=== PATIENT | male | born 2000 | race Caucasian/White ===

== ENCOUNTER 2021-08-05 13:54 | Day surgery (SDC) | payer MEDICAID, SELFPAY ==
[2021-08-05] VITALS (10 sets, daily range): BP systolic 85–126; BP diastolic 40–93; PULSE 48–67; RESP 16–100; TEMP 36.1–37.2; O2SAT 95–100; BMI 17.9
--- NOTE | 2021-08-05 | IMM_PTH ---
PATIENT: TARA GEORGE LOC: EN U#:[id number] AGE/SX: 21/M ROOM: RE08/05/[address]: Dr. Sina Turner DO : 2000 BED: DIS: 08/05/2021 SPEC #: [id number] RECD: 08/08/21 11:24 STATUS: OWEN REQ #: [id number] ANTONINA: 08/05/21 00:[address]: Sina Turner DEPT: IMMUNOHISTOCHEMISTRY RECD BY: Lay Eugene ENTERED: 08/08/21 11:25 SP TYPE: IMMUNO OTHR DR: Dr. Jaron Martin MD Tissues: Gastric mucous membrane Procedures: H Pylori (initial) PHYSICIAN & INSTITUTION [place] [address] SPECIMEN INFORMATION: Tissue Source: Gastric antrum Clinical Info: Inflammatory bowel disease, abdominal pain Specimen Number: [id number] CPT code: 97760 METHODOLOGY: Deparaffinized sections of prefer/formalin-fixed tissue or PAP/DQ stained slides are incubated with monoclonal/polyclonal antibodies/oligonucleotide probes. Localization is made via biotin free immunoperoxidase method. Appropriate controls are performed and reacted as expected. Results on target cell population are indicated in the following table: RESULTS: ANTIBODY / CLONE RESULT H Pylori (polyclonal) negative These tests were developed and their performance characteristics determined by [facility]. They may not have been cleared or approved by the U.S. Food and Drug Administration. The FDA has determined that such clearance or approval is not necessary. The above immunohistochemical/dualISH markers are ordered and reviewed by the Pathologist. INTERPRETATION: Gastric body, biopsy: Negative for Helicobacter pylori organisms. SJ:anna 08/08/21
[2021-08-05] MEDS: Lactated Ringers 1,000 ML 15 ML IV (14:24)
--- NOTE | 2021-08-05 14:27 | SUR.PREOP ---
Pt able to produce negative PCR COVID result completed on 07/30/21 at [facility] observed on pt's phone by this RN
--- NOTE | 2021-08-05 14:45 | EGD_PTH ---
PATIENT: TARA GEORGE LOC: EN U#:[id number] AGE/SX: 21/M ROOM: RE08/05/[address]: Dr. Sina Turner DO : 2000 BED: DIS: 08/05/2021 SPEC #: [id number] RECD: 08/05/21 15:56 STATUS: OWEN REAntoinette #: [id number] ANTONINA: 08/05/21 14:[address]: Sina Turner DEPT: SURGICAL PATHOLOGY RECD BY: Anny Henriquez ENTERED: 08/06/21 08:39 SP TYPE: EGD BIOPSY OT DR: Dr. Jaron Martin MD Tissues: A - Duodenum, NOS B - Duodenum, NOS C - Gastric mucous membrane D - Esophagus, NOS E - Ileum, NOS F - COLON BIOPSY Procedures: Surgery Specimen Level IV HEADER OPERATION: EGD colonoscopy PRE-OP DIAGNOSIS: Inflammatory bowel disease, abdominal pain TISSUE SUBMITTED: A. Duodenum biopsy, B. Duodenal ulcer biopsy, C. Gastric biopsy, D. Distal esophagus, E. Terminal ilium biopsy, F. Random colon biopsy MICROSCOPIC DIAGNOSIS A. Duodenum biopsy: Fragments of duodenal mucosa, no pathologic diagnosis. B. Duodenal ulcer biopsy: Fragments of duodenal mucosa with extensive ulceration and associated acute inflammation. C. Gastric biopsy: Mild gastritis. See microscopic description and comment. D. Distal esophagus: Fragments of gastric mucosa with mild chronic inflammation. Intestinal metaplasia (goblet cell metaplasia) not identified. See comment. E. Terminal ilium biopsy: Fragments of small intestinal mucosa, no pathologic diagnosis. F. Random colon biopsy: Fragments of colonic mucosa, no pathologic diagnosis. SJ 08/08/21 COMMENT C. The results of immunohistochemistry for Helicobacter pylori will be reported separately ([id number]). D. Alcian blue/PAS stain with matched control is used in the evaluation of the specimen. MICROSCOPIC DESCRIPTION Slides are reviewed. C. The specimen shows fragments of gastric mucosa with chronic inflammatory cells infiltrates in the lamina propria consisting of lymphocytes and plasma cells, consistent with mild chronic gastritis. GROSS DESCRIPTION A. Received is one container labeled with the patient name and designated duodenum. The specimen consists of multiple fragments that in aggregate measure 1.2 x 0.3 x 0.1 cm. The specimen is totally submitted in one cassette. B. Received is one container labeled with the patient name and designated duodenum ulcer. The specimen consists of multiple fragments that in aggregate measure 1.0 x 0.3 x 0.1 cm. The specimen is totally submitted in one cassette. C, Received is one container labeled with the patient name and designated gastric body. The specimen consists of one irregular fragment of light maddox soft tissue that measures 0.6 x 0.3 x 0.7 cm. The specimen is totally submitted in one cassette. D. Received is one container labeled with the patient name and designated distal esophagus. The specimen consists of multiple fragments that in aggregate measure 0.6 x 0.5 x 0.1 cm. The specimen is totally submitted in one cassette. E. Received is one container labeled with the patient name and designated terminal ilium. The specimen consists of two irregular fragment of light maddox soft tissue that in aggregate measure 0.5 x 0.5 x 0.1 cm. The specimen is totally submitted in one cassette. F. Received is one container labeled with the patient name and designated random colon. The specimen consists of The specimen consists of multiple fragments that in aggregate measure 2.0 x 1.0 x 0.1 cm. The specimen is. The specimen is totally submitted in one cassette. / SJ:cc 08/06/21 TC:2 CPT: 49833 x6, 73759
--- NOTE | 2021-08-05 15:03 | PCM.HP.BLA ---
History and Physical Date of Admission: 08/05/21 HPI Details: TARA GEORGE, is a 21 M who presents to the office today for Pain R side, left side and lower abdominal pain. Difficulty with constipation which alternates with diarrhea. Mucous-like stool. Onset about a year ago with minor symptoms and infrequently. It has progressed since onset in frequency and intensity. Has tried several OTC laxatives without effect. Presented to [place] [facility] due to abdominal pain. CT scans and ultrasounds performed and was told they think it's Crohn's. He does have family history of inflammatory bowel disease and a distant cousin. His weight goes up and down. He denies any arthritis but he does have on occasion blurred vision. He denies any chest pain or shortness of breath. He gets crampy abdominal pain that occurs almost on a daily basis. He gets diarrhea almost on a daily basis. He denies any rashes, ulcers or lesions that he can see. ROS Const Constitutional: Positive for weight change Eyes Eyes: Positive for blurry vision Cardio Cardiology: Positive for chest pain at rest Gastro GI: Positive for abdominal pain, bloating, change in bowel habits, constipation, diarrhea and nausea/dyspepsia Musc Musculoskeletal: Positive for joint pain Psych Psychiatric: Positive for anxiety, Positive for depression, Positive for Compulsive Behavior and Positive for hyperactivity Endo Endocrine: Positive for heat intolerance, increased hunger and weight change Assessment and Plan Assessment and Plan (1) Inflammatory bowel disease: Status: Acute Plan - Dr. Andino Friend, DO: The top differential diagnosis for a young man with crampy abdominal pain followed by diarrhea that is causing a significant weight reduction would be inflammatory bowel disease. Also diagnosis could be infectious colitis or enterocolitis secondary to eosinophilic gastroenteritis. We will need to check for these things and also celiac disease and microscopic colitis associated with celiac disease. We will also check for lymphocytic colitis and collagenous colitis while he undergoes colonoscopy. (2) Abdominal pain: Status: Acute Plan - Dr. Andino Friend, DO: Also under the diagnosis is IBS with diarrhea. I will give him dicyclomine for crampy abdominal pain. Bowel also give him a short course of prednisone therapy. Plan Details Other Medications: New: prednisone 20 mg PO DAILY 14 tabs 0RF polyethylene glycol 3350 (Miralax) 17 grams PO Q10-15M 510 grams 0RF dicyclomine 20 mg PO Q6H PRN 30 tabs 0RF abdominal pain I have re-examined the patient. There are no clinical changes since date of exam.
--- NOTE | 2022-05-15 06:38 | OP.COLON_ITS ---
Patient Name: Anil Rojas Procedure Date: 08/05/2021 3:19 PM Date of : 2000 Age: 21 Procedure: Colonoscopy Indications: Generalized abdominal pain, Chronic diarrhea Providers: Sina Turner DO Patient Profile: This is a 21 year old male. Refer to note in patient chart for documentation of history and physical. Patient has symptoms of acute abdominal cramping, acute abdominal distention and acute epigastric abdominal pain. Last Colonoscopy: none. The patient's first colonoscopy is today. Complications: No immediate complications. Procedure: Pre-Anesthesia Assessment: - Prior to the procedure, a History and Physical was performed, and patient medications and allergies were reviewed. The risks and benefits of the procedure and the sedation options and risks were discussed with the patient. All questions were answered and informed consent was obtained. Patient identification and proposed procedure were verified by the physician in the pre-procedure area. Mental Status Examination: alert and oriented. Airway Examination: normal oropharyngeal airway and neck mobility. Respiratory Examination: clear to auscultation. CV Examination: normal. Prophylactic Antibiotics: The patient does not require prophylactic antibiotics. Prior Anticoagulants: The patient has taken no previous anticoagulant or antiplatelet agents. ASA Grade Assessment: II - A patient with mild systemic disease. After reviewing the risks and benefits, the patient was deemed in satisfactory condition to undergo the procedure. The anesthesia plan was to use moderate sedation / analgesia (conscious sedation). Immediately prior to administration of medications, the patient was re-assessed for adequacy to receive sedatives. The heart rate, respiratory rate, oxygen saturations, blood pressure, adequacy of pulmonary ventilation, and response to care were monitored throughout the procedure. The physical status of the patient was re-assessed after the procedure. - Pre-procedure physical examination revealed no contraindications to sedation. After I obtained informed consent, the scope was passed under direct vision. Throughout the procedure, the patient's blood pressure, pulse, and oxygen saturations were monitored continuously. The Colonoscope was introduced through the and advanced to. The Colonoscope was introduced through the anus and advanced to the terminal ileum. The colonoscopy was performed without difficulty. Moderate Sedation: Moderate (conscious) sedation was administered by the endoscopy nurse and supervised by the endoscopist. The patient's oxygen saturation, heart rate, blood pressure and response to care were monitored. Total physician intraservice time was 15 minutes. Moderate (conscious) sedation was administered by the endoscopy nurse and supervised by the endoscopist. The patient's oxygen saturation, heart rate, blood pressure and response to care were monitored. Total physician intraservice time was 15 minutes. Scope In: 3:25:53 PM Scope Withdrawal Time 0 hours 12 minutes 35 seconds Scope Out: 3:43:58 PM Total Procedure Duration Time 0 hours 18 minutes 5 seconds Findings: The perianal and digital rectal examinations were normal. An area of mildly congested mucosa was found in the sigmoid colon, at the splenic flexure and in the ascending colon. Biopsies were taken with a cold forceps for histology. Verification of patient identification for the specimen was done. Estimated blood loss was minimal. A scattered area of the distal ileum was congested. Biopsies were taken with a cold forceps for histology. Impression: - Congested mucosa in the sigmoid colon, at the splenic flexure and in the ascending colon. Biopsied. - Congested mucosa in the distal ileum. Biopsied. Recommendation: - Written discharge instructions were provided to the patient. - The signs and symptoms of potential delayed complications were discussed with the patient. - Written discharge instructions were provided to the patient. - The signs and symptoms of potential delayed complications were discussed with the patient. - Patient has a contact number available for emergencies. - Return to normal activities tomorrow. - Resume previous diet. - Continue present medications. - Await pathology results. - Return to my office in 2 weeks. - Repeat colonoscopy at appointment to be scheduled for surveillance based on pathology results. Procedure Code(s): --- Professional --- 51468, Colonoscopy, flexible; with biopsy, single or multiple G0500, Moderate sedation services provided by the same physician or other qualified health progressive care manager performing a gastrointestinal endoscopic service that sedation supports, requiring the presence of an independent trained observer to assist in the monitoring of the patient's level of consciousness and physiological status; initial 15 minutes of intra-service time; patient age 5 years or older (additional time may be reported with 65701, as appropriate) G0500, Moderate sedation services provided by the same physician or other qualified health progressive care manager performing a gastrointestinal endoscopic service that sedation supports, requiring the presence of an independent trained observer to assist in the monitoring of the patient's level of consciousness and physiological status; initial 15 minutes of intra-service time; patient age 5 years or older (additional time may be reported with 03870, as appropriate) CPT copyright 2017 [employer]. All rights reserved. The codes documented in this report are preliminary and upon applications manager review may be revised to meet current compliance requirements. Sina Turner DO 08/05/2021 3:51:03 PM This report has been signed electronically. Number of Addenda: 1 Note Initiated On: 08/05/2021 3:19 PM Addendum Number: 1 Addendum Date: 05/15/2022 6:34:28 AM MAC was used instead of moderate sedation for this patient. Sina Turner DO 05/15/2022 6:34:33 AM This report has been signed electronically.
--- NOTE | 2022-05-15 06:38 | OP.EGD_ITS ---
Patient Name: Anil Rojas Procedure Date: 08/05/2021 2:59 PM Date of : 2000 Age: 21 Procedure: Upper GI endoscopy Indications: Epigastric abdominal pain Providers: Sina Turner DO Medicines: See the Anesthesia note for documentation of the administered medications Patient Profile: This is a 21 year old male. Refer to note in patient chart for documentation of history and physical. Patient has symptoms of acute abdominal cramping, acute abdominal distention and acute epigastric abdominal pain. Complications: No immediate complications. Procedure: Pre-Anesthesia Assessment: - Prior to the procedure, a History and Physical was performed, and patient medications and allergies were reviewed. The risks and benefits of the procedure and the sedation options and risks were discussed with the patient. All questions were answered and informed consent was obtained. Patient identification and proposed procedure were verified by the physician in the pre-procedure area. Mental Status Examination: alert and oriented. Airway Examination: normal oropharyngeal airway and neck mobility. Respiratory Examination: clear to auscultation. CV Examination: normal. Prophylactic Antibiotics: The patient does not require prophylactic antibiotics. Prior Anticoagulants: The patient has taken no previous anticoagulant or antiplatelet agents. ASA Grade Assessment: II - A patient with mild systemic disease. After reviewing the risks and benefits, the patient was deemed in satisfactory condition to undergo the procedure. The anesthesia plan was to use moderate sedation / analgesia (conscious sedation). Immediately prior to administration of medications, the patient was re-assessed for adequacy to receive sedatives. The heart rate, respiratory rate, oxygen saturations, blood pressure, adequacy of pulmonary ventilation, and response to care were monitored throughout the procedure. The physical status of the patient was re-assessed after the procedure. - Pre-procedure physical examination revealed no contraindications to sedation. After obtaining informed consent, the endoscope was passed under direct vision. Throughout the procedure, the patient's blood pressure, pulse, and oxygen saturations were monitored continuously. The gastroscope was introduced through the and advanced to the. The gastroscope was introduced through the mouth, and advanced to the second part of duodenum. The upper GI endoscopy was accomplished without difficulty. The patient tolerated the procedure well. Moderate Sedation: Moderate (conscious) sedation was personally administered by an anesthesia professional. The following parameters were monitored: oxygen saturation, heart rate, blood pressure, and response to care. Total physician intraservice time was 15 minutes. Scope In: 3:11:10 PM Scope Out: 3:18:20 PM Total Procedure Duration Time 0 hours 7 minutes 10 seconds Findings: LA Grade B (one or more mucosal breaks greater than 5 mm, not extending between the tops of two mucosal folds) esophagitis with no bleeding was found 34 to 35 cm from the incisors. Biopsies were taken with a cold forceps for histology. Verification of patient identification for the specimen was done. Estimated blood loss was minimal. Localized mild inflammation characterized by congestion (edema) was found in the gastric body. Biopsies were taken with a cold forceps for histology. Verification of patient identification for the specimen was done. Biopsies were taken with a cold forceps for histology. Verification of patient identification for the specimen was done. Estimated blood loss was minimal. Three non-bleeding cratered duodenal ulcers with no stigmata of bleeding were found in the first portion of the duodenum. The largest lesion was 6 mm in largest dimension. Biopsies were taken with a cold forceps for histology. Verification of patient identification for the specimen was done. Estimated blood loss was minimal. Scattered mild inflammation characterized by erosions and erythema was found in the second portion of the duodenum. Biopsies were taken with a cold forceps for histology. Verification of patient identification for the specimen was done. Estimated blood loss was minimal. Impression: - LA Grade B reflux esophagitis. Rule out Garcia's esophagus. Biopsied. - Gastritis. Biopsied. - Multiple non-bleeding duodenal ulcers with no stigmata of bleeding. Biopsied. - Duodenitis. Biopsied. Recommendation: - Discharge patient to home. - Resume previous diet. - Use Protonix (pantoprazole) 40 mg PO BID for 2 months. - Continue present medications. Procedure Code(s): --- Professional --- 36205, Esophagogastroduodenoscopy, flexible, transoral; with biopsy, single or multiple CPT copyright 2017 [employer]. All rights reserved. The codes documented in this report are preliminary and upon visual display manager review may be revised to meet current compliance requirements. Sina Turner DO 08/05/2021 3:23:55 PM This report has been signed electronically. Number of Addenda: 1 Note Initiated On: 08/05/2021 2:59 PM Addendum Number: 1 Addendum Date: 05/15/2022 6:34:10 AM MAC was used instead of moderate sedation for this patient. Sina Turner DO 05/15/2022 6:34:17 AM This report has been signed electronically.
== END 2021-08-05 16:51 | disposition home or self-care (01) ==
LOC: EN 13:56 → AC 13:57
PROVIDERS: PCP Internal Medicine Infectious Disease; Referring Provider Internal Medicine Infectious Disease; Visit Provider Internal Medicine Gastroenterology
PROC: 0DJD8ZZ Inspection of Lower Intestinal Tract, Via Natural or Artificial Opening Endoscopic (ICD-10-PCS; CPT 45378; principal; 2021-08-05 14:40)
DX: K26.9 Duodenal ulcer, unspecified as acute or chronic, without hemorrhage or perforation (principal); K29.80 Duodenitis without bleeding; K29.70 Gastritis, unspecified, without bleeding; K20.90 Esophagitis, unspecified without bleeding; R19.7 Diarrhea, unspecified; J45.909 Unspecified asthma, uncomplicated; F32.A Depression, unspecified; F41.9 Anxiety disorder, unspecified; Z79.899 Other long term (current) drug therapy; Z83.79 Family history of other diseases of the digestive system
CPT/HCPCS: 43239; 45380; 88305; 88342; J7120; J2405

== ENCOUNTER → 2021-08-19 10:02 | Outpatient (CLI) | payer MEDICAID, SELFPAY ==
[2021-08-19 10:40] LABS: Absolute Lymphocyte Count 2.04 X10^3/uL (0.83-4.51); Absolute Neutrophil Count 3.3 X10^3/uL (2.0-7.7); Basophil# 0.04 X10^3/uL; Basophil% 0.7 % (0-1); Eosinophil# 0.17 X10^3/uL; Eosinophils% 2.8 % (0-5); Hematocrit 42.8 % (40-54); Hemoglobin 13.7 g/dL (13.0-16.5); Lymphocyte # 2.04 X10^3/ul (0.83-4.51); Lymphocyte % 34.2 % (19-41); Mean Corpuscular Hgb 29.5 pg (27.0-32.0); Mean Corpuscular Volume 92.2 fL (80-94); Mean Platelet Vol. 8.9 fl (6.2-12.0); Monocyte# 0.42 X10^3/uL; NRBC Flagged by Analyzer 0 % (0-5); Neutrophil # 3.28 X10^3/uL (2.7-7.7); Platelet Count 391 K/mm3 (150-450); RBC Distribution Width SD 50.7 fl (35.1-43.9); Red Blood Count 4.64 M/mm3 (4.6-6.2)
[2021-08-19 10:43] LABS: Erythrocyte Sedimentation Rate 11 mm/hr (0-20)
[2021-08-19 10:47] LABS: International Normalized Ratio 1.1; Prothrombin Time (Protime)PT. 13.8 SECONDS (11.7-14.9)
[2021-08-19 11:08] LABS: AST(SGOT) 17 U/L (15-37); Alanine Aminotransfer ALT/SGPT 22 U/L (16-61); Albumin, Serum 3.9 g/dL (3.2-5.0); Alkaline Phosphatase 64 U/L (45-117); Anion Gap 5 (5-15); BUN 12 mg/dL (7-18); BUN/Creat Ratio 13.3 RATIO (10-20); CRP < 2.90 mg/L (0.0-3.0); Calcium,Total 9.2 mg/dL (8.5-10.1); Chloride 106 mmol/L (98-107); EST Glomerular Filtration Rate 113 mL/min (>60); Est Glom Filt Rate - Afr Amer 137 mL/min (>60); Globulin 3.8 g/dL (2.2-4.2); Glucose 97 mg/dL (74-106); Potassium 3.2 mmol/L (3.5-5.1); Protein, Total 7.7 g/dL (6.4-8.2); Sodium Level 142 mmol/L (136-145)
[2021-08-22 12:08] LABS: Clam <0.10 kU/L (Class 0); Codfish <0.10 kU/L (Class 0); Corn <0.10 kU/L (Class 0); Egg, White <0.10 kU/L (Class 0); Milk (Cow) <0.10 kU/L (Class 0); Peanut <0.10 kU/L (Class 0); SCALLOP <0.10 kU/L (Class 0); Shrimp <0.10 kU/L (Class 0); Soybean <0.10 kU/L (Class 0); Walnut, (Food) <0.10 kU/L (Class 0); Wheat <0.10 kU/L (Class 0)
[2021-08-22 12:50] LABS: SESAME SEED <0.10 kU/L (Class 0)
== END ==
PROVIDERS: PCP Internal Medicine Infectious Disease; Visit Provider Internal Medicine Gastroenterology
DX: K52.9 Noninfective gastroenteritis and colitis, unspecified (principal); R10.9 Unspecified abdominal pain
CPT/HCPCS: 36415; 80053; 85025; 85610; 85652; 86003; 86140